=== PATIENT | female | born 1970 | race Caucasian/White ===

== ENCOUNTER 2019-12-05 08:02 | Emergency (ER) | payer MEDICAID ==
[~2019-12-05] VITALS: Ht 167.6 cm; Wt 47.9 kg
[2019-12-05 08:07] VITALS: BP 137/93
--- NOTE | 2019-12-05 08:34 | NUR ---
Spoke to ED Jennifer, who states no need for stroke alert as this time as this is known and ongoing problem for pt. Head CT ordered.
--- NOTE | 2019-12-05 08:45 | NUR ---
Late entry for 819 Discussed pt sxs and hs with MD Rodriguez, received VO to place order for head CT, pt not placed on stroke protocol as pt with hx of ongoing sxs related to dx and pt not placed as stroke alert per MD Rodriguez instructions.
--- NOTE | 2019-12-05 09:56 | NUR ---
Pt left prior to receiving discharge vital signs, and prior to receiving written paperwork.
== END 2019-12-05 09:59 | disposition home or self-care (01) ==
LOC: ER 08:05
DX: I67.1 Cerebral aneurysm, nonruptured (principal); F17.200 Nicotine dependence, unspecified, uncomplicated
CPT/HCPCS: 70450; 99284

== ENCOUNTER 2020-04-05 15:08 | Emergency (ER) | payer MEDICAID ==
[~2020-04-05] VITALS: Ht 167.6 cm; Wt 54.5 kg
[2020-04-05 16:13] LABS: BASOPHILS # (AUTO) 0.1 X10'3 (0-0.2); BASOPHILS % (AUTO) 1.4 % (0-1); EOSINOPHILS # (AUTO) 0.3 X10'3 (0-0.9); EOSINOPHILS % (AUTO) 3.3 % (0-6); HEMATOCRIT 37.5 % (35.0-45.0); HEMOGLOBIN 12.2 g/dl (12.0-16.0); LYMPHOCYTES # (AUTO) 2.3 X10'3 (1.1-4.8); LYMPHOCYTES % (AUTO) 26.1 % (21-51); MEAN CORPUSCULAR HEMOGLOBIN 27.8 PG (27.0-31.0); MEAN CORPUSCULAR HGB CONC 32.5 g/dL (33.0-36.5); MEAN CORPUSCULAR VOLUME 85.7 FL (78-98); MEAN PLATELET VOLUME 7.4 FL (7.4-10.4); MONOCYTES # (AUTO) 0.8 X10'3 (0-0.9); NEUTROPHILS # (AUTO) 5.2 X10'3 (1.8-7.7); NEUTROPHILS % (AUTO) 60.2 % (42-75); PLATELET COUNT 375 X10'3 (140-440); RED BLOOD COUNT 4.37 X10'6 (4.20-5.60); RED CELL DISTRIBUTION WIDTH 16.2 % (11.5-14.5); WHITE BLOOD COUNT 8.6 X10'3 (4.5-11.0)
[2020-04-05 16:22] LABS: ALANINE AMINOTRANSFERASE 19 U/L (12-78); ALBUMIN 3.7 G/DL (3.4-5.0); ALKALINE PHOSPHATASE 137 IU/L (46-116); ANION GAP 11 (8-16); ASPARTATE AMINO TRANSFERASE 33 U/L (10-37); BILIRUBIN,TOTAL 0.1 MG/DL (0.1-1.0); BLOOD UREA NITROGEN 10 MG/DL (7-18); BUN/CREATININE RATIO 12.8 (6.6-38.0); CALCIUM 9.4 MG/DL (8.5-10.1); CHLORIDE 102 MMOL/L (99-107); CREATININE 0.78 MG/DL (0.40-0.90); GLUCOSE 105 MG/DL (70-104); SODIUM 139 MMOL/L (135-145); TOTAL CARBON DIOXIDE 25.7 MMOL/L (24-32); TOTAL PROTEIN 7.5 G/DL (6.4-8.2); eGFR 79 ML/MIN
[2020-04-05] MEDS ORDERED: acetaminophen 325mg tablet PO ONE (19:00)
[2020-04-05] MEDS ORDERED: HYDROcodone/acetaminophen 5mg/325mg tablet PO ONE (20:05)
[2020-04-05] MEDS ORDERED: ondansetron 4mg rapidly disintigrating tab PO ONE (20:10)
--- NOTE | 2020-04-05 21:25 | NUR ---
transfer center requiring a rapid covid swab, order placed and dr rodriguez made aware.
--- NOTE | 2020-04-05 22:30 | NUR ---
REPORT CALLED TO JOHN AT [facility] ACCEPTING MD DR GRANADOS . ALL VSSS PT COMFORTABLE.
[2020-04-05 22:37] VITALS: BP 112/58
== END 2020-04-05 22:53 | disposition short-term general hospital (02) ==
LOC: ER 15:10
DX: H49.02 Third [oculomotor] nerve palsy, left eye (principal); I67.1 Cerebral aneurysm, nonruptured; Z20.822 Contact with and (suspected) exposure to COVID-19; Q15.8 Other specified congenital malformations of eye; Z72.89 Other problems related to lifestyle; Z88.0 Allergy status to penicillin
CPT/HCPCS: 36415; 70544; 70547; 70551; 80053; 84443; 85025; 85651; 87635; 99285; C9803

== ENCOUNTER 2020-11-17 09:31 | Emergency (ER) | payer MEDICAID ==
[~2020-11-17] VITALS: Ht 165.1 cm; Wt 50.0 kg
[2020-11-17 09:40] VITALS: BP 131/86
[2020-11-17] MEDS ORDERED: aspirin 81mg, enteric-coated 1 TAB TABLET.DR PO ONE (11:30)
[2020-11-17] MEDS ORDERED: ASPI-1265 PO (11:56)
== END 2020-11-17 12:17 | disposition left against medical advice (07) ==
LOC: ER 09:32
DX: H54.7 Unspecified visual loss (principal); F10.10 Alcohol abuse, uncomplicated; Z72.89 Other problems related to lifestyle; Z88.0 Allergy status to penicillin; Z79.82 Long term (current) use of aspirin; Y90.9 Presence of alcohol in blood, level not specified
CPT/HCPCS: 99284

== ENCOUNTER 2020-12-11 19:18 | Emergency (ER) | payer MEDICAID ==
[~2020-12-11] VITALS: Ht 167.6 cm; Wt 39.4 kg
[~2020-12-11 19:18] MED LIST: ASPI-1265 PO
[2020-12-11] MEDS ORDERED: CEPH750C9 PO (20:43)
[2020-12-11] MEDS ORDERED: SULF1TAB49 PO (20:43)
[2020-12-11] MEDS ORDERED: CefTRIAXone 1000mg IM Kit (w/lidocaine diluent) IM ONE (20:50)
[2020-12-11] MEDS ORDERED: sulfamethoxazole/trimethoprim DS (800/160mg) tablet PO ONE (20:50)
[2020-12-11 21:32] VITALS: BP 139/88
== END 2020-12-11 21:35 | disposition home or self-care (01) ==
LOC: ER 19:19
DX: S81.802A Unspecified open wound, left lower leg, initial encounter (principal); S00.81XA Abrasion of other part of head, initial encounter; X58.XXXA Exposure to other specified factors, initial encounter; Y93.89 Activity, other specified; Y92.89 Other specified places as the place of occurrence of the external cause; Y99.8 Other external cause status
CPT/HCPCS: 96372; 99283; J0696

== ENCOUNTER 2020-12-15 18:38 | Emergency (ER) | payer MEDICAID ==
[~2020-12-15] VITALS: Ht 167.6 cm; Wt 49.1 kg
[~2020-12-15 18:38] MED LIST changes: +CEPH750C9 PO; +SULF1TAB49 PO
[2020-12-15 23:22] VITALS: BP 128/80
== END 2020-12-15 23:24 | disposition home or self-care (01) ==
LOC: ER 18:39
DX: R51.9 Headache, unspecified (principal); H53.8 Other visual disturbances; Z72.89 Other problems related to lifestyle; Z88.0 Allergy status to penicillin; Z79.82 Long term (current) use of aspirin; Z79.2 Long term (current) use of antibiotics
CPT/HCPCS: 70450; 99284

== ENCOUNTER 2020-12-19 12:58 | Emergency (ER) | payer MEDICAID ==
[~2020-12-19] VITALS: Ht 167.6 cm; Wt 54.5 kg
[~2020-12-19 12:58] MED LIST changes: -ASPI-1265 PO
[2020-12-19] MEDS ORDERED: ondansetron/PF 4mg/2ml inj IV ONE (13:05)
[2020-12-19] MEDS ORDERED: folic acid 1mg/0.2ml inj IV ONE (13:05)
[2020-12-19] MEDS ORDERED: thiamine 100mg/ml 2ml inj. IV ONE (13:05)
[2020-12-19] MEDS ORDERED: normal saline 1000ML IV soln IVB ONE (13:05)
[2020-12-19 13:53] LABS: BASOPHILS # (AUTO) 0.1 X10'3 (0-0.2); BASOPHILS % (AUTO) 1.7 % (0-1); EOSINOPHILS # (AUTO) 0.1 X10'3 (0-0.9); EOSINOPHILS % (AUTO) 1.1 % (0-6); HEMATOCRIT 35.6 % (35.0-45.0); HEMOGLOBIN 11.6 g/dl (12.0-16.0); LYMPHOCYTES # (AUTO) 0.9 X10'3 (1.1-4.8); LYMPHOCYTES % (AUTO) 17.4 % (21-51); MEAN CORPUSCULAR HEMOGLOBIN 28.4 PG (27.0-31.0); MEAN CORPUSCULAR HGB CONC 32.5 g/dL (33.0-36.5); MEAN CORPUSCULAR VOLUME 87.4 FL (78-98); MEAN PLATELET VOLUME 6.2 FL (7.4-10.4); MONOCYTES # (AUTO) 0.4 X10'3 (0-0.9); MONOCYTES % (AUTO) 8.9 % (2-12); NEUTROPHILS # (AUTO) 3.5 X10'3 (1.8-7.7); NEUTROPHILS % (AUTO) 70.9 % (42-75); PLATELET COUNT 433 X10'3 (140-440); RED BLOOD COUNT 4.07 X10'6 (4.20-5.60); RED CELL DISTRIBUTION WIDTH 18.4 % (11.5-14.5)
[2020-12-19 13:54] VITALS: BP 122/81
[2020-12-19 14:09] LABS: ALANINE AMINOTRANSFERASE 66 U/L (12-78); ALBUMIN 3.1 G/DL (3.4-5.0); ALBUMIN/GLOBULIN RATIO 0.6 (1.1-1.5); ALKALINE PHOSPHATASE 194 IU/L (46-116); ANION GAP 10 (8-16); ASPARTATE AMINO TRANSFERASE 117 U/L (10-37); BILIRUBIN,TOTAL 0.2 MG/DL (0.1-1.0); BLOOD UREA NITROGEN 9 MG/DL (7-18); BUN/CREATININE RATIO 12.2 (6.6-38.0); CALCIUM 8.2 MG/DL (8.5-10.1); CHLORIDE 100 MMOL/L (99-107); CREATININE 0.74 MG/DL (0.40-0.90); GLUCOSE 98 MG/DL (70-104); SODIUM 140 MMOL/L (135-145); TOTAL CARBON DIOXIDE 29.8 MMOL/L (24-32); TOTAL PROTEIN 8.6 G/DL (6.4-8.2); eGFR 83 ML/MIN
[2020-12-19 14:15] LABS: ETHANOL 0.388 GM/DL (0.0-0.010)
== END 2020-12-19 16:30 | disposition home or self-care (01) ==
LOC: ER 12:59
DX: F10.129 Alcohol abuse with intoxication, unspecified (principal); E86.0 Dehydration; M79.662 Pain in left lower leg; R11.10 Vomiting, unspecified; Z72.89 Other problems related to lifestyle; Z88.0 Allergy status to penicillin; Z88.1 Allergy status to other antibiotic agents; Y90.0 Blood alcohol level of less than 20 mg/100 ml
CPT/HCPCS: 36415; 80053; 80320; 85025; 99283

== ENCOUNTER 2021-01-10 15:22 | Emergency (ER) | payer MEDICAID ==
[~2021-01-10] VITALS: Ht 157.5 cm; Wt 61.4 kg
[2021-01-10 15:22] VITALS: BP 136/87
[~2021-01-10 15:22] MED LIST changes: -SULF1TAB49 PO
== END 2021-01-10 16:27 | disposition home or self-care (01) ==
LOC: ER 15:22
DX: F10.129 Alcohol abuse with intoxication, unspecified (principal); R47.81 Slurred speech; Z72.89 Other problems related to lifestyle; Z88.0 Allergy status to penicillin; Z79.2 Long term (current) use of antibiotics; Y90.9 Presence of alcohol in blood, level not specified
CPT/HCPCS: 99281

== ENCOUNTER 2021-01-14 19:01 | Emergency (ER) | payer MEDICAID ==
[~2021-01-14] VITALS: Ht 167.6 cm; Wt 115.0 kg
[2021-01-14 19:08] VITALS: BP 114/82
[2021-01-14] MEDS ORDERED: CEPH250T PO (19:16)
== END 2021-01-14 19:29 | disposition home or self-care (01) ==
LOC: ER 19:02
DX: S81.802A Unspecified open wound, left lower leg, initial encounter (principal); F10.920 Alcohol use, unspecified with intoxication, uncomplicated; X58.XXXA Exposure to other specified factors, initial encounter; Y93.89 Activity, other specified; Y92.89 Other specified places as the place of occurrence of the external cause; Y99.8 Other external cause status; Y90.9 Presence of alcohol in blood, level not specified; Z88.0 Allergy status to penicillin; Z88.8 Allergy status to other drugs, medicaments and biological substances
CPT/HCPCS: 99283